=== PATIENT | male | born 1960 | race Hispanic/Latino ===

== ENCOUNTER → 2022-01-16 | Day surgery (SDC) | payer BC ==
[~2022-01-16] MED LIST: DEXILANT60 MG PO; FENTANYL CITRATE/PF 100MCG/2 ML INJ ONE; GLIMEPIRIDE2 MG PO; JARDIANCE10 MG PO; METFORMIN HCL500 MG PO; MIDAZOLAM HCL 2 MG/2 ML VIAL ONE; OR PHACO EYE KIT ONE; PREOP PHACO EYE KIT ONE; Z.0.NAPROXEN500 M1 PO; [UNRECOGNIZED DRUG - OTHER] PO
[2022-01-16 11:06] VITALS: BP 157/93
== END | disposition home or self-care (01) ==
LOC: OR 07:24
PROVIDERS: ATTEND Ophthalmology
DX: H25.12 Age-related nuclear cataract, left eye (principal); E11.9 Type 2 diabetes mellitus without complications; I10 Essential (primary) hypertension; Z88.0 Allergy status to penicillin; Z01.812 Encounter for preprocedural laboratory examination; Z20.822 Contact with and (suspected) exposure to COVID-19; Z79.84 Long term (current) use of oral hypoglycemic drugs
CPT/HCPCS: 36415; 66984; 82948; J2250; J3010; U0002; V2788

== ENCOUNTER → 2022-02-13 | Day surgery (SDC) | payer BC ==
[2022-02-13 13:30] VITALS: BP 126/78
== END | disposition home or self-care (01) ==
LOC: OR 10:16
PROVIDERS: ATTEND Ophthalmology
DX: H25.11 Age-related nuclear cataract, right eye (principal); I10 Essential (primary) hypertension; E78.5 Hyperlipidemia, unspecified; J44.9 Chronic obstructive pulmonary disease, unspecified; E11.9 Type 2 diabetes mellitus without complications; Z79.84 Long term (current) use of oral hypoglycemic drugs; E66.9 Obesity, unspecified; Z68.37 Body mass index [BMI] 37.0-37.9, adult; Z11.52 Encounter for screening for COVID-19; Z79.899 Other long term (current) drug therapy
CPT/HCPCS: 36415; 82948; J2250; J3010; U0002; V2632